=== PATIENT | female | born 2000 | race Caucasian/White ===

== ENCOUNTER 2024-04-10 13:58 | Inpatient (IN) | payer BC, OTHER ==
[~2024-04-10 13:58] MED LIST: Iopamidol-370 76% 500 ML MDV (1 ML CHARGE) ONE
[2024-04-10] MEDS ORDERED: fentaNYL 50 mcg/mL 1 mL Vial ONE ×3 (14:13→19:04)
[2024-04-10] MEDS ORDERED: Boostrix 0.5 ML (Tdap) VIAL (>/=7 yrs of age) ONE (14:13)
[2024-04-10 14:25] LABS: #Basophils 0.07 10x3/uL (0.0-0.2); %Basophils 0.4 % (0.0-1.0); %Eosinophils 0.2 % (0.0-10.0); %Lymphocytes 16.7 % (21.0-51.0); %Monocytes 3.8 % (0.0-10.0); %Neutrophils 78.2 % (42.0-75.0); Hematocrit 38.8 % (36.0-47.0); Hemoglobin 13.3 g/dL (12.0-16.0); Mean Corpuscular HGB CONC 34.3 g/dL (32.0-36.0); Mean Corpuscular Hemoglobin 31.2 pg (27.0-31.0); Mean Corpuscular Volume 91.1 fL (78.0-98.0); Mean Platelet Volume 9.7 fL (7.4-10.4); Platelet Count 284 10x3/uL (130-400); RBC Distribution Width 12.5 % (11.5-14.5); Red Blood Cell (RBC) Count 4.26 mill/uL (4.20-5.40)
[2024-04-10 14:36] LABS: BHCG - Serum Negative (NEGATIVE); Pregs Control Background? CLEAR/WHITE (CLR/WHITE); Pregs Control Bar Appear? YES (CONTROL BAR)
[2024-04-10 14:45] LABS: ALT (SGPT) 16 U/L (8-55); AST (SGOT) 22 U/L (5-34); Alkaline Phosphatase 82 U/L (40-110); Anion Gap 18 mmol/L (10-20); BUN (Urea Nitrogen) 10 mg/dL (7.0-18.7); Bilirubin, Total 0.7 mg/dL (0.2-1.2); Calc. Creatinine Clearance 0 mL/min (70-130); Calcium 9.1 mg/dL (7.8-10.44); Carbon Dioxide 17 mmol/L (22-29); Chloride 107 mmol/L (98-107); Estimated GFR 97; Glucose 131 mg/dL (70-105); Lipase 24 U/L (8-78); Potassium 3.7 mmol/L (3.5-5.1); Sodium 138 mmol/L (136-145)
[2024-04-10] MEDS ORDERED: Ondansetron PF 4 MG/2 ML Vial IVP PRN (14:49)
[2024-04-10] MEDS ORDERED: Morphine 2 MG/ML VIAL SLOW IVP PRN ×2 (14:49→21:28)
[2024-04-10] MEDS ORDERED: traMADol HCl 50 MG TAB PO PRN (14:50)
[2024-04-10] MEDS ORDERED: Sodium Chloride 0.9% 100 ML ONE (14:57)
[2024-04-10] MEDS ORDERED: CEFAZOLIN 1 GM VIAL ONE ×2 (14:57→18:12)
[2024-04-10] MEDS ORDERED: CEFAZOLIN 2 GM VIAL ONE (14:59)
[2024-04-10] MEDS: Sodium Chloride 0.9% 1,000 ML IV SCH ×2 (15:00→23:41)
[2024-04-10] MEDS ORDERED: Ketorolac Tromethamine 30 MG (1 mL) VIAL IVP SCH (15:00)
[2024-04-10] MEDS: Ketorolac Tromethamine 30 MG (1 mL) VIAL IVP SCH ×2 (16:00→23:39)
[2024-04-10] MEDS ORDERED: CEFAZOLIN 2 GM in Sodium Chloride 0.9% 100 ML IVPB SCH (16:30)
[2024-04-10] MEDS ORDERED: Ondansetron PF 4 MG/2 ML Vial ONE ×2 (17:04→17:37)
[2024-04-10] MEDS ORDERED: Famotidine/PF 20 mg/2ml Vial ONE (17:05)
[2024-04-10] MEDS ORDERED: PROPOFOL 20 ML ONE (17:36)
[2024-04-10] MEDS ORDERED: fentaNYL PF 100 MCG/2 ML SYRINGE ONE ×2 (17:36→19:12)
[2024-04-10] MEDS ORDERED: Dexamethasone 4 mg/ml Vial ONE (17:37)
[2024-04-10] MEDS ORDERED: Lidocaine 1% PF 5 ML VIAL ONE (17:37)
[2024-04-10] MEDS ORDERED: Rocuronium Bromide 10 MG/ML (10ML VIAL) ONE (17:37)
[2024-04-10] MEDS: traMADol HCl 50 MG TAB PO SCH ×2 (18:00→21:45)
[2024-04-10] MEDS ORDERED: Sterile Water 20 ML ONE (18:12)
[2024-04-10] MEDS ORDERED: SUGAMMADEX SODIUM 200 MG/2 ML VIAL ONE (18:48)
[2024-04-10] MEDS ORDERED: Ketorolac Tromethamine 30 MG (1 mL) VIAL ONE (18:49)
[2024-04-10] MEDS ORDERED: Bupivacaine PF 0.5% 30 ML VIAL ONE (19:31)
[2024-04-10] MEDS ORDERED: Dexmedetomidine 200 MCG/2 ML VIAL ONE (19:31)
[2024-04-10 20:57] VITALS: BMI 25.8
[2024-04-10] MEDS: Famotidine/PF 20 mg/2ml Vial SLOW IVP SCH (21:00)
[2024-04-10] MEDS: Senokot S 8.6-50 MG TAB PO SCH (21:00)
[2024-04-10] MEDS: Acetaminophen 325 MG TAB PO SCH ×2 (21:00→21:45)
[2024-04-10] MEDS ORDERED: CEFAZOLIN 1 GM in Sodium Chloride 0.9% 100 ML IVPB SCH (23:00)
[2024-04-10] MEDS: CEFAZOLIN 1 GM in Sodium Chloride 0.9% 100 ML IVPB SCH (23:40)
[2024-04-11 05:43] LABS: Lactic Acid 0.81 mmol/L (0.5-2.2)
[2024-04-11 05:46] LABS: ALT (SGPT) 14 U/L (8-55); AST (SGOT) 28 U/L (5-34); Albumin 3.1 g/dL (3.5-5.0); Alkaline Phosphatase 61 U/L (40-110); Bilirubin, Direct 0.2 mg/dL (0.1-0.3); Bilirubin, Total 0.7 mg/dL (0.2-1.2); Protein, Total 5.5 g/dL (6.0-8.3)
[2024-04-11] MEDS: Acetaminophen 325 MG TAB PO SCH (05:50)
[2024-04-11] MEDS: Polyethylene Glycol 3350 17 GM Packet PO SCH (05:51)
[2024-04-11 07:04] LABS: #Basophils Less than 0.03 10x3/uL (0.0-0.2); #Eosinophils Less than 0.03 10x3/uL (0.0-0.7); %Basophils 0.1 % (0.0-1.0); %Lymphocytes 9.4 % (21.0-51.0); %Monocytes 6.3 % (0.0-10.0); %Neutrophils 83.8 % (42.0-75.0); Hematocrit 29.6 % (36.0-47.0); Hemoglobin 10.2 g/dL (12.0-16.0); Mean Corpuscular HGB CONC 34.5 g/dL (32.0-36.0); Mean Corpuscular Hemoglobin 31.6 pg (27.0-31.0); Mean Corpuscular Volume 91.6 fL (78.0-98.0); Mean Platelet Volume 10.6 fL (7.4-10.4); Platelet Count 225 10x3/uL (130-400); RBC Distribution Width 12.8 % (11.5-14.5); Red Blood Cell (RBC) Count 3.23 mill/uL (4.20-5.40)
[2024-04-11 08:29] LABS: Anion Gap 13 mmol/L (10-20); BUN (Urea Nitrogen) 10 mg/dL (7.0-18.7); Calc. Creatinine Clearance 119 mL/min (70-130); Calcium 7.9 mg/dL (7.8-10.44); Carbon Dioxide 20 mmol/L (22-29); Chloride 108 mmol/L (98-107); Estimated GFR 120; Glucose 115 mg/dL (70-105); Potassium 3.9 mmol/L (3.5-5.1); Sodium 137 mmol/L (136-145)
[2024-04-11] MEDS: Senokot S 8.6-50 MG TAB PO SCH (09:36)
[2024-04-11] MEDS: Famotidine 20 MG TAB PO SCH (09:37)
[2024-04-11] MEDS: Enoxaparin 40 MG (0.4 mL) SYRINGE SC SCH (17:28)
[2024-04-12 06:20] LABS: #Basophils 0.04 10x3/uL (0.0-0.2); %Basophils 0.3 % (0.0-1.0); %Eosinophils 1.3 % (0.0-10.0); %Lymphocytes 18.2 % (21.0-51.0); %Monocytes 9.5 % (0.0-10.0); %Neutrophils 70.4 % (42.0-75.0); Hematocrit 24.1 % (36.0-47.0); Hemoglobin 8.2 g/dL (12.0-16.0); Mean Corpuscular Hemoglobin 31.4 pg (27.0-31.0); Mean Corpuscular Volume 92.3 fL (78.0-98.0); Mean Platelet Volume 9.8 fL (7.4-10.4); Platelet Count 174 10x3/uL (130-400); Red Blood Cell (RBC) Count 2.61 mill/uL (4.20-5.40)
[2024-04-12 06:34] LABS: Anion Gap 10 mmol/L (10-20); BUN (Urea Nitrogen) 10 mg/dL (7.0-18.7); Calc. Creatinine Clearance 130 mL/min (70-130); Carbon Dioxide 24 mmol/L (22-29); Chloride 108 mmol/L (98-107); Estimated GFR 127; Glucose 104 mg/dL (70-105); Potassium 3.7 mmol/L (3.5-5.1); Sodium 138 mmol/L (136-145)
[2024-04-12 06:57] LABS: Calcium 7.9 mg/dL (7.8-10.44)
[2024-04-12] MEDS: Enoxaparin 40 MG (0.4 mL) SYRINGE SC SCH (09:23)
[2024-04-12] MEDS ORDERED: Iopamidol-370 76% 500 ML MDV (1 ML CHARGE) ONE (10:38)
[2024-04-12] MEDS: Lactated Ringer's 1,000 ML IV SCH (15:46)
[2024-04-13 06:32] LABS: Hematocrit 21.7 % (36.0-47.0); Hemoglobin 7.3 g/dL (12.0-16.0)
[2024-04-13 10:09] LABS: Platelet Count 155 10x3/uL (130-400)
[2024-04-13] MEDS: traMADol HCl 50 MG TAB PO PRN (19:39)
[2024-04-13] MEDS: Docusate 100 MG CAP PO SCH (19:40)
[2024-04-13] MEDS: Ondansetron PF 4 MG/2 ML Vial IVP PRN (19:43)
[2024-04-14 06:05] LABS: #Basophils 0.03 10x3/uL (0.0-0.2); %Basophils 0.3 % (0.0-1.0); %Eosinophils 4.5 % (0.0-10.0); %Monocytes 8.2 % (0.0-10.0); %Neutrophils 68.7 % (42.0-75.0); Hematocrit 28.5 % (36.0-47.0); Hemoglobin 9.8 g/dL (12.0-16.0); Mean Corpuscular HGB CONC 34.4 g/dL (32.0-36.0); Mean Corpuscular Hemoglobin 30.3 pg (27.0-31.0); Mean Corpuscular Volume 88.2 fL (78.0-98.0); Mean Platelet Volume 10.4 fL (7.4-10.4); Platelet Count 184 10x3/uL (130-400); RBC Distribution Width 13.7 % (11.5-14.5); Red Blood Cell (RBC) Count 3.23 mill/uL (4.20-5.40)
[2024-04-14] MEDS: Aspirin 81 mg Enteric Coated Tablet PO SCH (08:30)
[2024-04-14] MEDS ORDERED: Aspirin 81 mg Enteric Coated Tablet PO SCH (09:00)
[2024-04-14 11:01] LABS: #Basophils 0.04 10x3/uL (0.0-0.2); %Basophils 0.4 % (0.0-1.0); %Eosinophils 4.8 % (0.0-10.0); %Monocytes 6.6 % (0.0-10.0); %Neutrophils 64.8 % (42.0-75.0); Hematocrit 27.1 % (36.0-47.0); Hemoglobin 9.2 g/dL (12.0-16.0); Mean Corpuscular HGB CONC 33.9 g/dL (32.0-36.0); Mean Corpuscular Hemoglobin 31.2 pg (27.0-31.0); Mean Corpuscular Volume 91.9 fL (78.0-98.0); Mean Platelet Volume 9.7 fL (7.4-10.4); Platelet Count 157 10x3/uL (130-400); RBC Distribution Width 13.7 % (11.5-14.5); Red Blood Cell (RBC) Count 2.95 mill/uL (4.20-5.40)
[2024-04-14 15:57] VITALS: BP 113/76; TEMP 98.6
== END 2024-04-14 18:15 | disposition home or self-care (01) | DRG 956 ==
LOC: ERS 13:58 → SDC/OP 16:31 → ERS 16:31 → SURG B 19:03
PROVIDERS: ADMIT Surgery; ATTEND Surgery
PROC: 0QS806Z Reposition Right Femoral Shaft with Intramedullary Internal Fixation Device, Open Approach (ICD-10-PCS; principal; 2024-04-10)
PROC: 30233K1 Transfusion of Nonautologous Frozen Plasma into Peripheral Vein, Percutaneous Approach (ICD-10-PCS; 2024-04-13)
PROC: 30233N1 Transfusion of Nonautologous Red Blood Cells into Peripheral Vein, Percutaneous Approach (ICD-10-PCS; 2024-04-13)
DX: S72.351A Displaced comminuted fracture of shaft of right femur, initial encounter for closed fracture (principal); T79.1XXA Fat embolism (traumatic), initial encounter; R91.1 Solitary pulmonary nodule; N64.89 Other specified disorders of breast; V43.52XA Car driver injured in collision with other type car in traffic accident, initial encounter; Y93.I9 Activity, other involving external motion; Y92.410 Unspecified street and highway as the place of occurrence of the external cause; D50.0 Iron deficiency anemia secondary to blood loss (chronic); R09.02 Hypoxemia
CPT/HCPCS: 36415; 36430; 70450; 71045; 71260; 71275; 72125; 72170; 74177; 80048; 80053; 80076; 83605; 83615; 83690; 84703; 85014; 85018; 85025; 86850; 86900; 86901; 90471; 90715; 96374; C1713; G0390; J0665; J0690; J1100; J1650; J1885; J2405; J2704; J3010; J3490; J7030; J7120; P9016; P9059; Q9967